=== PATIENT | female | born 1990 | race Caucasian/White ===

== ENCOUNTER 2020-12-16 08:33 | Day surgery (SDC) | payer SELFPAY ==
[2020-12-14 16:41] VITALS: BMI 18.7
[~2020-12-16 08:33] MED LIST: BUPIVACAINE HCL/PF 2.5 MG/ML - 30 ML VIAL IJ ONE
[2020-12-16] MEDS ORDERED: MIDAZOLAM HCL 2 MG/2 ML SINGLE DOSE VIAL ONE (11:07)
[2020-12-16] MEDS ORDERED: LIDOCAINE HCL/PF 2% SDV 5ML VIAL ONE (11:25)
[2020-12-16] MEDS ORDERED: PROPOFOL 20 ML ONE ×2 (11:26)
[2020-12-16] MEDS ORDERED: ceFAZolin SODIUM 1 GM VIAL IVPB ONE (11:36)
[2020-12-16] MEDS ORDERED: BUPIVACAINE HCL/PF 0.25% (2.5MG/ML) 10 ML VIAL ONE (11:45)
[2020-12-16] MEDS ORDERED: oxyCODONE HCL 5 MG TABLET PO PRN (12:49)
[2020-12-16] MEDS ORDERED: ONDANSETRON 4 MG/2 ML VIAL IVPUSH PRN (12:49)
[2020-12-16] MEDS ORDERED: PROMETHAZINE HCL 25 MG/1 ML VIAL IVPUSH PRN (12:49)
[2020-12-16] MEDS ORDERED: oxyCODONE HCL 5 MG TABLET ONE ×2 (14:05→14:08)
[2020-12-16 14:15] VITALS: TEMP 98.2
[2020-12-16 17:03] VITALS: BP 128/70; PULSE 68
== END 2020-12-16 16:48 | disposition home or self-care (01) ==
LOC: JASU-SURG 08:33
PROVIDERS: ATTEND Plastic Surgery
CPT/HCPCS: 81025; 94760